=== PATIENT | female | born 1935 | race Caucasian/White ===

== ENCOUNTER 2024-01-19 09:27 | Outpatient (CLI) | payer MEDICARE | END 2024-01-19 09:28 | disposition home or self-care (01) | LOC: CSHCT 09:27 | PROVIDERS: ATTEND Nurse Practitioner Adult Health | DX: R09.89 Other specified symptoms and signs involving the circulatory and respiratory systems (principal); I65.23 Occlusion and stenosis of bilateral carotid arteries; R91.8 Other nonspecific abnormal finding of lung field | CPT/HCPCS: 36415; 70498; 82565 ==